=== PATIENT | male | born 1980 | race Caucasian/White ===

== ENCOUNTER 2016-06-10 09:10 | Emergency (ER) | payer OTHER ==
[2016-06-10 09:22] VITALS: BP 156/96; PULSE 84; RESP 16; TEMP 97.5; O2SAT 95
--- NOTE | 2016-06-10 09:35 | UCPHY ---
H & P Patient Type: New Chief Complaint Nursing Narrative: C/o KEN, sore throat, productive cough with yellow sputum, chest congestion, nasal drainage x 1 week. Denies fever. Time Seen by Provider: 06/10/16 09:45 HPI/ROS: CHIEF COMPLAINT: Sinus congestion HISTORY OF PRESENT ILLNESS: This patient is a 35 year old man presenting with a two week history of sinus congestion. It is associated with productive cough with yellow sputum, short throat, post-nasal drip, and rhinorrhea. Symptoms have gradually worsened. He has been taking ibuprofen for symptom relief. His and child were both diagnosed with sinusitis last week, both received antibiotics. He denies fever, chest pain, or difficulty breathing. REVIEW OF SYSTEMS: A ten point review of systems was performed and is negative with the exception of the items mentioned in the HPI. Source: Patient Exam Limitations: No limitations - Personal History Current Tetanus Diphtheria and Acellular Pertussis (TDAP): Yes Tetanus Vaccine Date: within 10 years - Medical/Surgical History Hx Asthma: No Hx Chronic Respiratory Disease: No Hx Diabetes: No Hx Cardiac Disease: No Hx Renal Disease: No Hx Cirrhosis: No Hx Alcoholism: No Hx HIV/AIDS: No Hx Splenectomy or Spleen Trauma: No Other PMH: PreHTN, R ankle surgery, nasal surgery after broken - Family History Significant Family History: No pertinent family hx - Social History Smoking Status: Never smoked Alcohol Use: None Drug Use: None Additional Social History: He is and has a daughter. - Physical Exam Exam: General Appearance: Alert. Vital signs reviewed. Blood pressure 156/96. Eyes: Pupils equal and round, no conjunctival injection, no discharge. Anicteric. ENT, Mouth: Mucous membranes are moist, no oropharyngeal erythema or edema. No post-nasal drip visualized. No sinus tenderness. Neck: No lymphadenopathy, supple. Respiratory: Lungs are clear to auscultation; no wheezes, rales, or rhonchi. Cardiovascular: Regular rate and rhythm; no murmur, rub, or gallop. Gastrointestinal: Abdomen is soft and nontender, no masses or organomegaly, bowel sounds normal. Skin: Warm and dry, no rashes on exposed skin, normal color. Back: Nontender to palpation over the thoracolumbar spine. No CVAT. Extremities: No lower extremity edema, no calf tenderness or swelling. Neurological: Alert and oriented. Moving all four extremities easily and equally. Psychiatric: Normal affect. Constitutional: Initial Vital Signs Temperature (C) 36.4 C 06/10/16 09:16 Heart Rate 84 06/10/16 09:16 Respiratory Rate 16 06/10/16 09:16 Blood Pressure 156/96 H 06/10/16 09:16 O2 Sat (%) 95 06/10/16 09:16 Allergies/Adverse Reactions: No Known Allergies Allergy (Verified 06/10/16 09:22) Home Medications: Medication Instructions Recorded Amoxicillin/Clavulanate Pot 875 mg PO BID #14 tab 06/10/16 [Augmentin 875 MG TAB (*)] Medical Decision Making ED Course/Re-evaluation: This patient presenting with two weeks of sinus congestion/drainage and upper respiratory symptoms. Symptoms have gradually worsened over the last two weeks. There are no acute findings on exam. He has no sinus tenderness or pharyngeal erythema. Lungs are clear for auscultation. His and daughter were each recently sick with similar symptoms and both were treated with antibiotics. I have explained that I am unsure whether this is a bacterial or viral infection. I suspect that it is viral. However, his family members improved with antibiotics and he would like to have a prescription available in case he fails to improve. I have agreed to prescribe antibiotics for treatment of sinusitis. Prescribed course of Augmentin that he may choose to take if he continues to not improve. I have also discussed ibuprofen/Tylenol for symptom alleviation and have recommended that he drink plenty of fluids. Differential Diagnosis: Differential diagnosis includes but is not limited to viral sinusitis, bacterial sinusitis, bacterial upper respiratory infection, viral upper respiratory infection, pneumonia, pharyngitis, otitis media, and influenza. Departure - Departure Disposition: Home, Routine, Self-Care Clinical Impression: Sinusitis Qualifiers: Sinusitis location: other Chronicity: acute Recurrence: non-recurrent Qualified Code(s): J01.80 - Other acute sinusitis Condition: Good Instructions: Sinusitis (ED), Upper Respiratory Infection (ED) Additional Instructions: Take the Augmentin as prescribed. Drink plenty of fluids. Return to the [facility] or seen care from an emergency department immediately for high fever, severe headache or neck pain, difficulty breathing, abdominal pain, rash or other worsening of condition. Adult Pain & Fever Control: We recommend Acetaminophen (Tylenol) and Ibuprofen (Motrin,Advil) for pain and fever control. When fever is high or pain severe, both drugs can be used at the same time, but at different intervals. Please note the time differences. Your dose is: Acetaminophen 650mg every 4 to 6 hours Ibuprofen 600mg every 6-8 hours with food Note: do not take Acetaminophen with Hydrocodone (Vicodin, Lortab) or Oycodone (Percocet). These medications also contain Acetaminophen. No more than 3000mg of Acetaminophen should be taken in 24 hours (for an adult). Referrals: Aubrey Lee MD [Medical Doctor] - As per Instructions (Primary care provider) Prescriptions: Amoxicillin/Clavulanate Pot [Augmentin 875 MG TAB (*)] 875 mg PO BID #14 tab - PQRS PQRS Measurement: Does not apply Report Scribed for: Ansley Bey Report Scribed by: Lillie Snow Date of Report: 06/10/16 Time of Report: 09:51 Physician Review and Approval Statement: 06/10/16 09:34 Portions of this note were transcribed by the medical insurance coder. I, Dr. Ansley Bey, personally performed the history, physical exam, and medical decision- making; and confirmed the accuracy of the information in the transcribed note.
== END 2016-06-10 10:08 | disposition home or self-care (01) ==
LOC: CED 09:10
DX: J01.80 Other acute sinusitis (principal)
CPT/HCPCS: G0463-PO